=== PATIENT | male | born 1940 | race Native Hawaiian/Other Pacific Islander ===

== ENCOUNTER 2017-12-30 09:24 | Day surgery (SDC) | payer OTHER ==
[2016-08-14 18:58] VITALS: BMI 27.6
[2017-12-30 10:23] VITALS: BP 162/84; PULSE 58; RESP 18; TEMP 97.7; O2SAT 10
== END 2017-12-30 13:10 | disposition home or self-care (01) ==
LOC: C.SDS 09:24
PROVIDERS: ATTEND Urology
DX: N20.9 Urinary calculus, unspecified (principal); N13.30 Unspecified hydronephrosis; Z53.09 Procedure and treatment not carried out because of other contraindication